=== PATIENT | female | born 1995 | race Caucasian/White ===

== ENCOUNTER 2019-07-24 04:44 | Day surgery (SDC) | payer BC, OTHER ==
[2019-07-24] MEDS ORDERED: HYDROmorphone 1 MG/ML Syringe IV ONE (05:09)
[2019-07-24] MEDS ORDERED: Ondansetron 4 MG/2 ML SDV IVPUSH ONE (05:09)
[2019-07-24] MEDS ORDERED: Sodium Chloride 0.9% 1,000 ML IV ONE (05:09)
--- NOTE | 2019-07-24 05:21 | EDM.PDOC ---
ED HPI GENERAL MEDICAL PROBLEM - General Chief Complaint: Abdominal Pain Stated Complaint: RT SIDE PAIN Time Seen by Provider: 07/24/19 05:10 Source of Information: Reports: Patient History Limitations: Reports: No Limitations - History of Present Illness INITIAL COMMENTS - FREE TEXT/NARRATIVE: HISTORY AND PHYSICAL: History of present illness: This is a 23-year-old female with no significant past medical history presents ER today complaining of pain to her right lower quadrant times approximately 12 hours. Patient denies any recent fevers, shakes, chills. Patient reports she has been nauseous but no vomiting. Patient reports she is had 3 loose watery bowel movements over the last 12 hours. Patient has any melena or bright red blood per rectum. Patient denies any dysuria frequency urgency hematuria. Patient denies any recent fevers, shakes, chills, URI symptoms, cough, rhinorrhea, sore throat, ear pain. Patient reports decreased appetite decreased p.o. intake. Patient reports pain increases with ambulation. Patient has any vaginal discharge. Patient denies any melena or bright red blood per rectum. Review of systems: As per history of present illness and below otherwise all systems reviewed and negative. Past medical history: As per history of present illness and as reviewed below otherwise noncontributory. Surgical history: As per history of present illness and as reviewed below otherwise noncontributory. Social history: No reported history of drug or alcohol abuse. Family history: As per history of present illness and as reviewed below otherwise noncontributory. Physical exam: Constitutional: Patient is oriented to person, place, and time. Appears well- developed and well-nourished. No distress. HEENT: Moist mucous membranes Head: Normocephalic and atraumatic Eyes: Right eye exhibits no discharge. Left eye exhibits no discharge. No scleral icterus Neck: Normal range of motion. No tracheal deviation present. Cardiovascular: Normal rate and regular rhythm. Pulmonary: Effort normal, no respiratory distress. Abdominal: Soft nondistended no rebound or guarding. Patient has tenderness to palpation to her right lower quadrant. Patient did not have a Saavedra sign. Patient does have tenderness over McBurney's point. Positive for rebound. Positive for guarding. Musculoskeletal: Normal range of motion Neurologic: Alert and oriented to person, place and time. Skin: [place], warm and dry. Psychiatric: Normal mood and affect. Behavior is normal. Judgment and thought content normal. Nursing note and vital signs have been reviewed Diagnostics: CT scan of the abdomen pelvis reveals early acute appendicitis without any intra -abdominal abscess or pneumoperitoneum. Intrauterine contraceptive device was in place. Patient's labs were significant for normal urinalysis. Patient CBC was significant for an elevated WBC count. Therapeutics: Patient was given Dilaudid 0.5 mg IV along with Zofran 4 mg IV desisted with her pain and discomfort. Patient was given normal saline solution wide open x1 L. Impression: This is a 23-year-old female who presents to the ER today with signs and symptoms consistent with acute appendicitis. Patient presented with right lower quadrant tenderness, nausea/anorexia, leukocytosis, and a CT scan consistent with early acute appendicitis. Plan: 6:31 AM: Patient was early acute appendicitis by CT scan as a culprit of her abdominal discomfort. Patient will need surgical consultation. Case discussed with Dr. Gonzales who is on his way into the ER to evaluate patient. Definitive disposition and diagnosis as appropriate pending reevaluation and review of above. 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 Musculoskeletal History: Reports: None Neurological History: Reports: None Psychiatric History: Reports: None Endocrine/Metabolic History: Reports: None Hematologic History: Reports: None Immunologic History: Reports: None Oncologic (Cancer) History: Reports: None Dermatologic History: Reports: None - Infectious Disease History Infectious Disease History: Reports: None - Past Surgical History Head Surgeries/Procedures: Reports: None HEENT Surgical History: Reports: None Cardiovascular Surgical History: Reports: None Respiratory Surgical History: Reports: None GI Surgical History: Reports: None Female Surgical History: Reports: None Endocrine Surgical History: Reports: None Neurological Surgical History: Reports: None Musculoskeletal Surgical History: Reports: None Dermatological Surgical History: Reports: None Social & Family History - Family History Family Medical History: Noncontributory - Tobacco Use Smoking Status *Q: Never Smoker Second Hand Smoke Exposure: No - Caffeine Use Caffeine Use: Reports: Coffee - Recreational Drug Use Recreational Drug Use: No ED ROS GENERAL - Review of Systems Review Of Systems: Comprehensive ROS is negative, except as noted in HPI. ED EXAM, GENERAL - Physical Exam Exam: See Below Course - Vital Signs Last Recorded V/S: Last Vital Signs Temp 96.4 F L 07/24/19 05:00 Pulse 70 07/24/19 06:05 Resp 15 07/24/19 06:05 BP 144/89 H 07/24/19 06:05 Pulse Ox 97 07/24/19 06:05 - Orders/Labs/Meds Orders: Active Orders 24 hr Category Date Time Status CORONAVIRUS COVID-19 PCR PHL Stat Lab 07/24/19 06:28 Ordered Labs: Laboratory Tests 07/24/19 07/24/19 07/24/19 Range/Units 05:00 05:00 05:10 WBC 16.20 H (4.0-11.0) K/uL RBC 5.16 (4.30-5.90) M/uL Hgb 15.2 (12.0-16.0) g/dL Hct 44.2 (36.0-46.0) % MCV 85.7 (80.0-98.0) fL MCH 29.5 (27.0-32.0) pg MCHC 34.4 (31.0-37.0) g/dL RDW Std Deviation 39.1 (28.0-62.0) fl RDW Coeff of Yadira 13 (11.0-15.0) % Plt Count 304 (150-400) K/uL MPV 8.60 (7.40-12.00) fL Neut % (Auto) 73.9 (48.0-80.0) % Lymph % (Auto) 18.4 (16.0-40.0) % [place] % (Auto) 6.0 (0.0-15.0) % Eos % (Auto) 1.5 (0.0-7.0) % Baso % (Auto) 0.2 (0.0-1.5) % Neut # (Auto) 12.0 H (1.4-5.7) K/uL Lymph # (Auto) 3.0 H (0.6-2.4) K/uL [place] # (Auto) 1.0 H (0.0-0.8) K/uL Eos # (Auto) 0.2 (0.0-0.7) K/uL Baso # (Auto) 0.0 (0.0-0.1) K/uL Nucleated RBC % 0.0 /100WBC Nucleated RBCs # 0 K/uL Sodium 141 (136-145) mmol/L Potassium 3.6 (3.5-5.1) mmol/L Chloride 104 (98-107) mmol/L Carbon Dioxide 24.4 (21.0-32.0) mmol/L BUN 11 (7.0-18.0) mg/dL Creatinine 0.9 (0.6-1.0) mg/dL Est Cr Clr Drug Dosing 86.73 mL/min Estimated GFR (MDRD) > 60.0 ml/min Glucose 104 (74-106) mg/dL Calcium 8.6 (8.5-10.1) mg/dL Total Bilirubin 0.3 (0.2-1.0) mg/dL AST 25 (15-37) IU/L ALT 41 (14-63) IU/L Alkaline Phosphatase 105 (46-116) U/L Total Protein 7.6 (6.4-8.2) g/dL Albumin 4.1 (3.4-5.0) g/dL Globulin 3.5 (2.6-4.0) g/dL Albumin/Globulin Ratio 1.2 (0.9-1.6) Lipase 151 (73-393) U/L Urine Color YELLOW Urine Appearance SLT CLOUDY Urine pH 6.0 (5.0-8.0) Ur Specific [place] 1.025 (1.001-1.035) Urine Protein NEGATIVE (NEGATIVE) mg/dL Urine Glucose (UA) NEGATIVE (NEGATIVE) mg/dL Urine Ketones NEGATIVE (NEGATIVE) mg/dL Urine Occult Blood SMALL H (NEGATIVE) Urine Nitrite NEGATIVE (NEGATIVE) Urine Bilirubin NEGATIVE (NEGATIVE) Urine Urobilinogen 0.2 (<2.0) EU/dL Ur Leukocyte Esterase NEGATIVE (NEGATIVE) Urine RBC 0-2 (0-2/HPF) Urine WBC 0-1 (0-5/HPF) Ur Epithelial Cells RARE (NONE-FEW) Urine Bacteria RARE (NEGATIVE) Urine HCG, Qual (NEGATIVE) 07/24/19 Range/Units 05:10 WBC (4.0-11.0) K/uL RBC (4.30-5.90) M/uL Hgb (12.0-16.0) g/dL Hct (36.0-46.0) % MCV (80.0-98.0) fL MCH (27.0-32.0) pg MCHC (31.0-37.0) g/dL RDW Std Deviation (28.0-62.0) fl RDW Coeff of [place]ad[place] (11.0-15.0) % Plt Count (150-400) K/uL MPV (7.40-12.00) fL Neut % (Auto) (48.0-80.0) % Lymph % (Auto) (16.0-40.0) % [place] % (Auto) (0.0-15.0) % Eos % (Auto) (0.0-7.0) % Baso % (Auto) (0.0-1.5) % Neut # (Auto) (1.4-5.7) K/uL Lymph # (Auto) (0.6-2.4) K/uL [place] # (Auto) (0.0-0.8) K/uL Eos # (Auto) (0.0-0.7) K/uL Baso # (Auto) (0.0-0.1) K/uL Nucleated RBC % /100WBC Nucleated RBCs # K/uL Sodium (136-145) mmol/L Potassium (3.5-5.1) mmol/L Chloride (98-107) mmol/L Carbon Dioxide (21.0-32.0) mmol/L BUN (7.0-18.0) mg/dL Creatinine (0.6-1.0) mg/dL Est Cr Clr Drug Dosing mL/min Estimated GFR (MDRD) ml/min Glucose (74-106) mg/dL Calcium (8.5-10.1) mg/dL Total Bilirubin (0.2-1.0) mg/dL AST (15-37) IU/L ALT (14-63) IU/L Alkaline Phosphatase (46-116) U/L Total Protein (6.4-8.2) g/dL Albumin (3.4-5.0) g/dL Globulin (2.6-4.0) g/dL Albumin/Globulin Ratio (0.9-1.6) Lipase (73-393) U/L Urine Color Urine Appearance Urine pH (5.0-8.0) Ur Specific [place] (1.001-1.035) Urine Protein (NEGATIVE) mg/dL Urine Glucose (UA) (NEGATIVE) mg/dL Urine Ketones (NEGATIVE) mg/dL Urine Occult Blood (NEGATIVE) Urine Nitrite (NEGATIVE) Urine Bilirubin (NEGATIVE) Urine Urobilinogen (<2.0) EU/dL Ur Leukocyte Esterase (NEGATIVE) Urine RBC (0-2/HPF) Urine WBC (0-5/HPF) Ur Epithelial Cells (NONE-FEW) Urine Bacteria (NEGATIVE) Urine HCG, Qual NEGATIVE (NEGATIVE) Meds: Medications Discontinued Medications Generic Name Dose Route Start Last Admin Trade Name Freq PRN Reason Stop Dose Admin Hydromorphone HCl 0.5 mg 07/24/19 05:09 07/24/19 05:21 Dilaudid IV 07/24/19 05:10 0.5 mg ONETIME ONE Administration Sodium Chloride 1,000 mls @ 1,000 mls/hr 07/24/19 05:09 07/24/19 05:21 Normal Saline IV 07/24/19 06:08 1,000 mls/hr BOLUS ONE Administration Ondansetron HCl 4 mg 07/24/19 05:09 07/24/19 05:21 Zofran IVPUSH 07/24/19 05:10 4 mg ONETIME ONE Administration Departure - Departure Time of Disposition: 06:32 Disposition: Admitted As Inpatient 65 Condition: Good Clinical Impression: Appendicitis Qualifiers: Appendicitis type: acute appendicitis Acute appendicitis type: with localized peritonitis Appendicitis perforation presence: without perforation Appendicitis abscess presence: without abscess - Discharge Information *PRESCRIPTION DRUG MONITORING PROGRAM REVIEWED*: Not Applicable *COPY OF PRESCRIPTION DRUG MONITORING REPORT IN PATIENT MIYA: Not Applicable Referrals: PCP,None [Primary Care Provider] - Forms: ED Department Discharge Sepsis Event Note (ED) - Evaluation Sepsis Screening Result: No Definite Risk - Focused Exam Vital Signs: Vital Signs Temp Pulse Resp BP Pulse Ox 07/24/19 06:05 70 15 144/89 H 97 07/24/19 05:00 96.4 F L 102 H 15 168/104 H 98 - My Orders Last 24 Hours: My Active Orders 07/24/19 06:28 CORONAVIRUS COVID-19 PCR PHL Stat - Assessment/Plan Last 24 Hours: My Active Orders 07/24/19 06:28 CORONAVIRUS COVID-19 PCR PHL Stat
[2019-07-24 05:28] LABS: BLOOD UREA NITROGEN,BUN 11 mg/dL (7.0-18.0); CARBON DIOXIDE,CO2 24.4 mmol/L (21.0-32.0); CHLORIDE,CL 104 mmol/L (98-107); GLUCOSE RANDOM 104 mg/dL (74-106); LIPASE 151 U/L (73-393); POTASSIUM,K 3.6 mmol/L (3.5-5.1); SODIUM,NA 141 mmol/L (136-145)
--- NOTE | 2019-07-24 06:28 | CT ---
INDICATION: Right-sided abdominal pain. COMPARISON: None. TECHNIQUE: CT abdomen and pelvis without intravenous or oral contrast; coronal and sagittal reformats. FINDINGS: Enlarged appendix measuring 11 mm in diameter with edema involving the appendiceal wall and periappendiceal inflammatory changes. Also appreciated is a small appendicolith. No evidence of intra-abdominal abscess. No pneumoperitoneum or intestinal obstruction . No abnormal intra pulmonary nodular densities through the lung bases. No evidence of pleural effusion . Normal size cardiac silhouette without any evidence of pericardial effusion. No focal hepatic or splenic pathology. No pancreatic pathology. Gallbladder is unremarkable. No adrenal pathology. No kidney stones or obstructive uropathy. No retroperitoneal lymphadenopathy. Intrauterine contraceptive device in place. IMPRESSION: 1. Early acute appendicitis without any intra-abdominal abscess or pneumoperitoneum. 2. Intrauterine contraceptive device in place. Please note that all CT scans at this facility use dose modulation, iterative reconstruction, and/or weight-based dosing when appropriate to reduce radiation dose to as low as reasonably achievable. Dictated by Kristal Espinosa MD @ Jul 24 2019 6:23AM Signed by Dr. Kristal Espinosa @ Jul 24 2019 6:26AM
[2019-07-24] MEDS ORDERED: cefOXitin 2 GM in Premix Bag 1 BAG IV ONE (07:39)
[2019-07-24] MEDS ORDERED: Lactated Ringers 1,000 ML IV SCH ×2 (07:45→11:30)
--- NOTE | 2019-07-24 07:45 | PCM.HP.2 ---
H&P History of Present Illness - General Date of Service: 07/24/19 Admit Problem/Dx: Admission Diagnosis/Problem Admission Diagnosis/Problem Acute appendicitis Source of Information: Patient History Limitations: Reports: No Limitations - History of Present Illness Initial Comments - Free Text/Narative: Patient is a 23-year-old female who presented the emergency room this morning complaining of right lower quadrant pain. She relates the pain did start last night. Mild nausea with anorexia. No history of vomiting. No change in bowel habits. No one at home is ill. She also notes pain with ambulation and states it's hard to stand up straight when she walks. Symptom Onset Date: 07/23/19 Duration of Symptoms: Reports: Hour(s):, Getting Worse Location: Reports: Abdomen Quality: Reports: Pressure Severity: Moderate Improves with: Reports: Rest Worsens with: Reports: Movement Associated Symptoms: Reports: Loss of Appetite. Denies: Nausea/Vomiting Right Lower Abdomen Pain Score (Numeric/FACES): 5 - Related Data Allergies/Adverse Reactions: Allergies Allergy/AdvReac Type Severity Reaction Status Date / Time amoxicillin Allergy Rash Verified 07/24/19 04:59 fentanyl Allergy Rash Verified 07/24/19 04:59 Home Medications: Home Meds Iud 1 VAG ASDIRECTED 07/24/19 [History] Past Medical History - Past Health History Medical/Surgical History: Denies Medical/Surgical History HEENT History: Reports: None Cardiovascular History: Reports: None Respiratory History: Reports: None Gastrointestinal History: Reports: None Genitourinary History: Reports: None 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, Other (See Below) (IUD) Musculoskeletal History: Reports: None Neurological History: Reports: None Psychiatric History: Reports: None Endocrine/Metabolic History: Reports: None Hematologic History: Reports: None Immunologic History: Reports: None Oncologic (Cancer) History: Reports: None Dermatologic History: Reports: None - Infectious Disease History Infectious Disease History: Reports: None - Past Surgical History Head Surgeries/Procedures: Reports: None HEENT Surgical History: Reports: None Cardiovascular Surgical History: Reports: None Respiratory Surgical History: Reports: None GI Surgical History: Reports: None Female Surgical History: Reports: None Endocrine Surgical History: Reports: None Neurological Surgical History: Reports: None Musculoskeletal Surgical History: Reports: None Dermatological Surgical History: Reports: None Social & Family History - Family History Family Medical History: Noncontributory - Tobacco Use Smoking Status *Q: Never Smoker Second Hand Smoke Exposure: No - Caffeine Use Caffeine Use: Reports: Coffee - Recreational Drug Use Recreational Drug Use: No H&P Review of Systems - Review of Systems: Review Of Systems: See Below General: Reports: Decreased Appetite. Denies: Fever, Chills HEENT: Reports: No Symptoms Pulmonary: Denies: Shortness of Breath, Wheezing Cardiovascular: Denies: Chest Pain, Palpitations Gastrointestinal: Reports: Abdominal Pain, Anorexia, Flatus. Denies: Black Stool, Bloody Stool, Constipation, Diarrhea, Hematemesis, Hematochezia, Nausea, Vomiting Genitourinary: Denies: Dysuria, Frequency, Burning, Pain Musculoskeletal: Reports: No Symptoms Skin: Denies: Cyanosis, Jaundice, Mottled, Pallor, Diaphoresis Psychiatric: Reports: No Symptoms Neurological: Reports: No Symptoms Hematologic/Lymphatic: Reports: No Symptoms Immunologic: Reports: No Symptoms Exam - Exam Exam: See Below - Vital Signs Vital Signs: Last Vital Signs Temp 96.4 F L 07/24/19 05:00 Pulse 69 07/24/19 06:51 Resp 16 07/24/19 06:51 BP 143/95 H 07/24/19 06:51 Pulse Ox 97 07/24/19 06:51 Weight: 210 lb - Exam Quality Assessment: No: Supplemental Oxygen, Central Line/PICC, Urinary Catheter General: Alert, Oriented, Cooperative, Mild Distress HEENT: Conjunctiva Clear, Nares Patent, PERRLA. No: Scleral Icterus Neck: Supple, Trachea Midline Lungs: Clear to Auscultation, Normal Respiratory Effort Cardiovascular: Regular Rate, Regular Rhythm, Normal S1, Normal S2. No: Tachycardia, Systolic Murmur, Diastolic Murmur GI/Abdominal Exam: Normal Bowel Sounds, Soft, No Distention, Rebound, Tender. No: Guarding, Rigid (Female) Exam: Deferred Rectal (Female) Exam: Deferred Back Exam: Normal Inspection, Full Range of Motion Extremities: Normal Inspection, Normal Range of Motion, No Pedal Edema, Normal Capillary Refill Peripheral Pulses: 4+: Posterior Tibial (L), Posterior Tibial (R), Dorsalis Pedis (L), Dorsalis Pedis (R) Skin: Warm, Dry, Intact Neuro Extensive - Mental Status: Alert, Oriented x3, Normal Mood/Affect, Normal Cognition Psychiatric: Alert, Normal Affect, Normal Mood - Patient Data Lab Results Last 24 hrs: Laboratory Results - last 24 hr 07/24/19 07/24/19 07/24/19 Range/Units 05:00 05:00 05:10 WBC 16.20 H (4.0-11.0) K/uL RBC 5.16 (4.30-5.90) M/uL Hgb 15.2 (12.0-16.0) g/dL Hct 44.2 (36.0-46.0) % MCV 85.7 (80.0-98.0) fL MCH 29.5 (27.0-32.0) pg MCHC 34.4 (31.0-37.0) g/dL RDW Std Deviation 39.1 (28.0-62.0) fl RDW Coeff of Yadira 13 (11.0-15.0) % Plt Count 304 (150-400) K/uL MPV 8.60 (7.40-12.00) fL Neut % (Auto) 73.9 (48.0-80.0) % Lymph % (Auto) 18.4 (16.0-40.0) % [place] % (Auto) 6.0 (0.0-15.0) % Eos % (Auto) 1.5 (0.0-7.0) % Baso % (Auto) 0.2 (0.0-1.5) % Neut # (Auto) 12.0 H (1.4-5.7) K/uL Lymph # (Auto) 3.0 H (0.6-2.4) K/uL [place] # (Auto) 1.0 H (0.0-0.8) K/uL Eos # (Auto) 0.2 (0.0-0.7) K/uL Baso # (Auto) 0.0 (0.0-0.1) K/uL Nucleated RBC % 0.0 /100WBC Nucleated RBCs # 0 K/uL Sodium 141 (136-145) mmol/L Potassium 3.6 (3.5-5.1) mmol/L Chloride 104 (98-107) mmol/L Carbon Dioxide 24.4 (21.0-32.0) mmol/L BUN 11 (7.0-18.0) mg/dL Creatinine 0.9 (0.6-1.0) mg/dL Est Cr Clr Drug Dosing 86.73 mL/min Estimated GFR (MDRD) > 60.0 ml/min Glucose 104 (74-106) mg/dL Calcium 8.6 (8.5-10.1) mg/dL Total Bilirubin 0.3 (0.2-1.0) mg/dL AST 25 (15-37) IU/L ALT 41 (14-63) IU/L Alkaline Phosphatase 105 (46-116) U/L Total Protein 7.6 (6.4-8.2) g/dL Albumin 4.1 (3.4-5.0) g/dL Globulin 3.5 (2.6-4.0) g/dL Albumin/Globulin Ratio 1.2 (0.9-1.6) Lipase 151 (73-393) U/L Urine Color YELLOW Urine Appearance SLT CLOUDY Urine pH 6.0 (5.0-8.0) Ur Specific [place] 1.025 (1.001-1.035) Urine Protein NEGATIVE (NEGATIVE) mg/dL Urine Glucose (UA) NEGATIVE (NEGATIVE) mg/dL Urine Ketones NEGATIVE (NEGATIVE) mg/dL Urine Occult Blood SMALL H (NEGATIVE) Urine Nitrite NEGATIVE (NEGATIVE) Urine Bilirubin NEGATIVE (NEGATIVE) Urine Urobilinogen 0.2 (<2.0) EU/dL Ur Leukocyte Esterase NEGATIVE (NEGATIVE) Urine RBC 0-2 (0-2/HPF) Urine WBC 0-1 (0-5/HPF) Ur Epithelial Cells RARE (NONE-FEW) Urine Bacteria RARE (NEGATIVE) Urine HCG, Qual (NEGATIVE) SARS-CoV-2 RNA (RT-PCR) (NEGATIVE) 07/24/19 07/24/19 Range/Units 05:10 06:29 WBC (4.0-11.0) K/uL RBC (4.30-5.90) M/uL Hgb (12.0-16.0) g/dL Hct (36.0-46.0) % MCV (80.0-98.0) fL MCH (27.0-32.0) pg MCHC (31.0-37.0) g/dL RDW Std Deviation (28.0-62.0) fl RDW Coeff of [place]ad[place] (11.0-15.0) % Plt Count (150-400) K/uL MPV (7.40-12.00) fL Neut % (Auto) (48.0-80.0) % Lymph % (Auto) (16.0-40.0) % [place] % (Auto) (0.0-15.0) % Eos % (Auto) (0.0-7.0) % Baso % (Auto) (0.0-1.5) % Neut # (Auto) (1.4-5.7) K/uL Lymph # (Auto) (0.6-2.4) K/uL [place] # (Auto) (0.0-0.8) K/uL Eos # (Auto) (0.0-0.7) K/uL Baso # (Auto) (0.0-0.1) K/uL Nucleated RBC % /100WBC Nucleated RBCs # K/uL Sodium (136-145) mmol/L Potassium (3.5-5.1) mmol/L Chloride (98-107) mmol/L Carbon Dioxide (21.0-32.0) mmol/L BUN (7.0-18.0) mg/dL Creatinine (0.6-1.0) mg/dL Est Cr Clr Drug Dosing mL/min Estimated GFR (MDRD) ml/min Glucose (74-106) mg/dL Calcium (8.5-10.1) mg/dL Total Bilirubin (0.2-1.0) mg/dL AST (15-37) IU/L ALT (14-63) IU/L Alkaline Phosphatase (46-116) U/L Total Protein (6.4-8.2) g/dL Albumin (3.4-5.0) g/dL Globulin (2.6-4.0) g/dL Albumin/Globulin Ratio (0.9-1.6) Lipase (73-393) U/L Urine Color Urine Appearance Urine pH (5.0-8.0) Ur Specific [place] (1.001-1.035) Urine Protein (NEGATIVE) mg/dL Urine Glucose (UA) (NEGATIVE) mg/dL Urine Ketones (NEGATIVE) mg/dL Urine Occult Blood (NEGATIVE) Urine Nitrite (NEGATIVE) Urine Bilirubin (NEGATIVE) Urine Urobilinogen (<2.0) EU/dL Ur Leukocyte Esterase (NEGATIVE) Urine RBC (0-2/HPF) Urine WBC (0-5/HPF) Ur Epithelial Cells (NONE-FEW) Urine Bacteria (NEGATIVE) Urine HCG, Qual NEGATIVE (NEGATIVE) SARS-CoV-2 RNA (RT-PCR) NEGATIVE (NEGATIVE) Result Diagrams: 07/24/19 05:00 07/24/19 05:00 Sepsis Event Note - Evaluation Sepsis Screening Result: No Definite Risk - Focused Exam Vital Signs: Vital Signs Temp Pulse Resp BP Pulse Ox 07/24/19 06:51 69 16 143/95 H 97 07/24/19 06:05 70 15 144/89 H 97 07/24/19 05:00 96.4 F L 102 H 15 168/104 H 98 Date Exam was Performed: 07/24/19 Time Exam was Performed: 07:40 - Problem List (1) Appendicitis SNOMED Code(s): 90240307 ICD Code: K37 - UNSPECIFIED APPENDICITIS Status: Acute Current Visit: Yes Qualifiers: Appendicitis type: acute appendicitis Acute appendicitis type: with localized peritonitis Appendicitis gangrene presence: unspecified whether gangrene present Appendicitis perforation presence: without perforation Appendicitis abscess presence: without abscess Qualified Code(s): K35.30 - Acute appendicitis with localized peritonitis, without perforation or gangrene Problem List Initiated/Reviewed/Updated: Yes Orders Last 24hrs: Active Orders 24 hr Category Date Time Status Admission Status [Patient Status] [ADT] Routine ADT 07/24/19 06:50 Active Antiembolic Devices [RC] PER UNIT ROUTINE Care 07/24/19 07:39 Ordered Insert Urinary Catheter [OM.PC] Timed Care 07/24/19 07:39 Ordered Oxygen Therapy [RC] ASDIRECTED Care 07/24/19 07:39 Ordered RT Incentive Spirometry [RC] Q1HWA Care 07/24/19 07:39 Ordered Skin Preparation [RC] .PREOP Care 07/24/19 07:39 Ordered Urinary Catheter Assessment [RC] ASDIRECTED Care 07/24/19 07:39 Ordered Urinary Catheter Assessment [RC] ASDIRECTED Care 07/24/19 07:39 Ordered Urinary Catheter Assessment [RC] ASDIRECTED Care 07/24/19 07:39 Ordered Vital Signs [RC] PER UNIT ROUTINE Care 07/24/19 07:39 Ordered Nothing Per Oral Diet [DIET] Diet 07/24/19 Dinner Ordered Lactated Ringers @ 125 MLS/HR(1000ml) Med 07/24/19 07:45 Ordered Lactated Ringers [Ringers, Lactated] 1,000 ml IV ASDIRECTED cefOXitin [Mefoxin in Dextrose,Iso-Osm 2 GM/50 ML] 2 gm Med 07/24/19 07:39 Ordered Premix Bag 1 bag IV ONETIME Antiembolic Hose [OM.PC] Routine Oth 07/24/19 07:39 Ordered Resuscitation Status Routine Resus Stat 07/24/19 07:39 Ordered Laparoscopic appendectomy, possible open appendectomy. Both operative procedures, along with the risks, including, but not limited to, bleeding, infection, pneumonia, deep venous thrombosis, pulmonary emboli, myocardial infarction, and adjacent organ injury have been reviewed with the patient who voices understanding, offers no questions and agrees to proceed. - Mortality Measure Prognosis:: Good
--- NOTE | 2019-07-24 07:52 | PCM.PREANE ---
Preanesthetic Assessment - Anesthesia/Transfusion/Family Hx Anesthesia History: Prior Anesthesia Without Reaction Family History of Anesthesia Reaction: No Transfusion History: Unknown Intubation History: Unknown - Review of Systems General: No Symptoms Pulmonary: No Symptoms Cardiovascular: No Symptoms Gastrointestinal: Abdominal Pain Neurological: No Symptoms Other: Reports: None - Physical Assessment Vital Signs: Last Vital Signs Temp 35.8 C L 07/24/19 05:00 Pulse 69 07/24/19 06:51 Resp 16 07/24/19 06:51 BP 143/95 H 07/24/19 06:51 Pulse Ox 97 07/24/19 06:51 Height: 5 ft 5 in Weight: 95.254 kg ASA Class: 2E Mental Status: Alert & Oriented x3 Airway Class: Mallampati = 1 Dentition: Reports: Normal Dentition Thyro-Mental Finger Breadths: 3 Mouth Opening Finger Breadths: 3 ROM/Head Extension: Full Lungs: Clear to Auscultation, Normal Respiratory Effort Cardiovascular: Regular Rate, Regular Rhythm - Lab Values: Laboratory Last Values WBC 16.20 K/uL (4.0-11.0) H 07/24/19 05:00 RBC 5.16 M/uL (4.30-5.90) 07/24/19 05:00 Hgb 15.2 g/dL (12.0-16.0) 07/24/19 05:00 Hct 44.2 % (36.0-46.0) 07/24/19 05:00 MCV 85.7 fL (80.0-98.0) 07/24/19 05:00 MCH 29.5 pg (27.0-32.0) 07/24/19 05:00 MCHC 34.4 g/dL (31.0-37.0) 07/24/19 05:00 RDW Std Deviation 39.1 fl (28.0-62.0) 07/24/19 05:00 RDW Coeff of Yadira 13 % (11.0-15.0) 07/24/19 05:00 Plt Count 304 K/uL (150-400) 07/24/19 05:00 MPV 8.60 fL (7.40-12.00) 07/24/19 05:00 Neut % (Auto) 73.9 % (48.0-80.0) 07/24/19 05:00 Lymph % (Auto) 18.4 % (16.0-40.0) 07/24/19 05:00 [place] % (Auto) 6.0 % (0.0-15.0) 07/24/19 05:00 Eos % (Auto) 1.5 % (0.0-7.0) 07/24/19 05:00 Baso % (Auto) 0.2 % (0.0-1.5) 07/24/19 05:00 Neut # (Auto) 12.0 K/uL (1.4-5.7) H 07/24/19 05:00 Lymph # (Auto) 3.0 K/uL (0.6-2.4) H 07/24/19 05:00 [place] # (Auto) 1.0 K/uL (0.0-0.8) H 07/24/19 05:00 Eos # (Auto) 0.2 K/uL (0.0-0.7) 07/24/19 05:00 Baso # (Auto) 0.0 K/uL (0.0-0.1) 07/24/19 05:00 Nucleated RBC % 0.0 /100WBC 07/24/19 05:00 Nucleated RBCs # 0 K/uL 07/24/19 05:00 Sodium 141 mmol/L (136-145) 07/24/19 05:00 Potassium 3.6 mmol/L (3.5-5.1) 07/24/19 05:00 Chloride 104 mmol/L (98-107) 07/24/19 05:00 Carbon Dioxide 24.4 mmol/L (21.0-32.0) 07/24/19 05:00 BUN 11 mg/dL (7.0-18.0) 07/24/19 05:00 Creatinine 0.9 mg/dL (0.6-1.0) 07/24/19 05:00 Est Cr Clr Drug Dosing 86.73 mL/min 07/24/19 05:00 Estimated GFR (MDRD) > 60.0 ml/min 07/24/19 05:00 Glucose 104 mg/dL (74-106) 07/24/19 05:00 Calcium 8.6 mg/dL (8.5-10.1) 07/24/19 05:00 Total Bilirubin 0.3 mg/dL (0.2-1.0) 07/24/19 05:00 AST 25 IU/L (15-37) 07/24/19 05:00 ALT 41 IU/L (14-63) 07/24/19 05:00 Alkaline Phosphatase 105 U/L (46-116) 07/24/19 05:00 Total Protein 7.6 g/dL (6.4-8.2) 07/24/19 05:00 Albumin 4.1 g/dL (3.4-5.0) 07/24/19 05:00 Globulin 3.5 g/dL (2.6-4.0) 07/24/19 05:00 Albumin/Globulin Ratio 1.2 (0.9-1.6) 07/24/19 05:00 Lipase 151 U/L (73-393) 07/24/19 05:00 Urine Color YELLOW 07/24/19 05:10 Urine Appearance SLT CLOUDY 07/24/19 05:10 Urine pH 6.0 (5.0-8.0) 07/24/19 05:10 Ur Specific [place] 1.025 (1.001-1.035) 07/24/19 05:10 Urine Protein NEGATIVE mg/dL (NEGATIVE) 07/24/19 05:10 Urine Glucose (UA) NEGATIVE mg/dL (NEGATIVE) 07/24/19 05:10 Urine Ketones NEGATIVE mg/dL (NEGATIVE) 07/24/19 05:10 Urine Occult Blood SMALL (NEGATIVE) H 07/24/19 05:10 Urine Nitrite NEGATIVE (NEGATIVE) 07/24/19 05:10 Urine Bilirubin NEGATIVE (NEGATIVE) 07/24/19 05:10 Urine Urobilinogen 0.2 EU/dL (<2.0) 07/24/19 05:10 Ur Leukocyte Esterase NEGATIVE (NEGATIVE) 07/24/19 05:10 Urine RBC 0-2 (0-2/HPF) 07/24/19 05:10 Urine WBC 0-1 (0-5/HPF) 07/24/19 05:10 Ur Epithelial Cells RARE (NONE-FEW) 07/24/19 05:10 Urine Bacteria RARE (NEGATIVE) 07/24/19 05:10 Urine HCG, Qual NEGATIVE (NEGATIVE) 07/24/19 05:10 SARS-CoV-2 RNA (RT-PCR) NEGATIVE (NEGATIVE) 07/24/19 06:29 - Allergies Allergies/Adverse Reactions: Allergies Allergy/AdvReac Type Severity Reaction Status Date / Time amoxicillin Allergy Rash Verified 07/24/19 04:59 fentanyl Allergy Rash Verified 07/24/19 04:59 - Blood Blood Available: No - Anesthesia Plan Pre-Op Medication Ordered: None - Acknowledgements Anesthesia Type Planned: General Anesthesia Pt an Appropriate Candidate for the Planned Anesthesia: Yes Alternatives and Risks of Anesthesia Discussed w Pt/Guardian: Yes Pt/Guardian Understands and Agrees with Anesthesia Plan: Yes PreAnesthesia Questionnaire - Past Health History Medical/Surgical History: Denies Medical/Surgical History HEENT History: Reports: None Cardiovascular History: Reports: Hypertension (no medications) Respiratory History: Reports: None Gastrointestinal History: Reports: Other (See Below) (acute appendicitis) Genitourinary History: Reports: None [employer]UC[employer] TE[employer]ER History: Reports: None, Other (See Below) (IUD) Musculoskeletal History: Reports: None Neurological History: Reports: None Psychiatric History: Reports: None Endocrine/Metabolic History: Reports: Obesity/BMI 30+ (BMI 34.9) Hematologic History: Reports: None Immunologic History: Reports: None Oncologic (Cancer) History: Reports: None Dermatologic History: Reports: None - Infectious Disease History Infectious Disease History: Reports: None - Past Surgical History Head Surgeries/Procedures: Reports: None HEENT Surgical History: Reports: Oral Surgery Cardiovascular Surgical History: Reports: None Respiratory Surgical History: Reports: None GI Surgical History: Reports: None Female Surgical History: Reports: None Endocrine Surgical History: Reports: None Neurological Surgical History: Reports: None Musculoskeletal Surgical History: Reports: None Dermatological Surgical History: Reports: None - SUBSTANCE USE Smoking Status *Q: Never Smoker Second Hand Smoke Exposure: No Recreational Drug Use History: No - HOME MEDS Home Medications: Home Meds Iud 1 VAG ASDIRECTED 07/24/19 [History] - CURRENT (IN HOUSE) MEDS Current Meds: Current Medications Cefoxitin Sodium 2 gm/ Premix 50 mls @ 100 mls/hr IV ONETIME ONE Stop: 07/24/19 08:08 Lactated Ringer's (Ringers, Lactated) 1,000 mls @ 125 mls/hr IV ASDIRECTED CRISTO Discontinued Medications Hydromorphone HCl (Dilaudid) 0.5 mg IV ONETIME ONE Stop: 07/24/19 05:10 Last Admin: 07/24/19 05:21 Dose: 0.5 mg Sodium Chloride (Normal Saline) 1,000 mls @ 1,000 mls/hr IV BOLUS ONE Stop: 07/24/19 06:08 Last Admin: 07/24/19 05:21 Dose: 1,000 mls/hr Ondansetron HCl (Zofran) 4 mg IVPUSH ONETIME ONE Stop: 07/24/19 05:10 Last Admin: 07/24/19 05:21 Dose: 4 mg
[2019-07-24] MEDS ORDERED: Midazolam 1 MG/ML 2 ML SDV ONE (08:29)
[2019-07-24] MEDS ORDERED: Propofol 200 MG/20 ML SDV ONE (08:29)
[2019-07-24] MEDS ORDERED: fentaNYL 250 MCG/5 ML SDV ONE (08:29)
[2019-07-24] MEDS ORDERED: Ketorolac 30 MG/ML SDV ONE (08:31)
[2019-07-24] MEDS ORDERED: Lidocaine 2% 5 ML SDV ONE (08:31)
[2019-07-24] MEDS ORDERED: Rocuronium Bromide 50 MG/5 ML Syringe ONE (08:31)
[2019-07-24] MEDS ORDERED: Ondansetron 4 MG/2 ML SDV ONE (08:31)
[2019-07-24] MEDS ORDERED: Glycopyrrolate 0.2 MG/ML SDV ONE (08:31)
[2019-07-24] MEDS ORDERED: Sugammadex Sodium 200 MG/2 ML VIAL ONE (08:33)
[2019-07-24] MEDS ORDERED: ceFAZolin 1 GM Vial ONE (09:48)
[2019-07-24] MEDS ORDERED: Bupivacaine 0.5% 10 ML SDV ONE (09:48)
[2019-07-24] MEDS ORDERED: Acetaminophen 1,000 MG in Premix Bag 1 BAG IV PRN (10:23)
[2019-07-24] MEDS ORDERED: fentaNYL 100 MCG/2 ML SDV IVPUSH PRN (10:23)
[2019-07-24] MEDS ORDERED: cefOXitin 1 GM Vial ONE (10:56)
[2019-07-24] MEDS ORDERED: fentaNYL 100 MCG/2 ML SDV ONE (11:08)
--- NOTE | 2019-07-24 11:29 | PCM.OPNOTE ---
- General Post-Op/Procedure Note Date of Surgery/Procedure: 07/24/19 Operative Procedure(s): Laparoscopic appendectomy Pre Op Diagnosis: Acute abdomen Post-Op Diagnosis: Acute separative appendicitis without rupture Anesthesia Technique: General ET Tube (ASA IIE) Primary Surgeon: Edilson Gonzales Fluid Replacement, Intraop: 1,100 Output, Urine Amount: 100 EBL in mLs: 10 Condition: Stable Free Text/Narrative:: DICTATION 106411 CPT CODE 10187
[2019-07-24] MEDS ORDERED: cefOXitin 1 GM in Premix Bag 1 BAG IV SCH ×2 (11:30→16:00)
--- NOTE | 2019-07-24 12:10 | PCM.POSTAN ---
POST ANESTHESIA ASSESSMENT - MENTAL STATUS Mental Status: Alert, Oriented - VITAL SIGNS Vital Signs: Last Vital Signs Temp 36.3 C 07/24/19 11:18 Pulse 60 07/24/19 12:02 Resp 17 07/24/19 12:02 BP 115/70 07/24/19 12:02 Pulse Ox 96 07/24/19 12:02 - RESPIRATORY Respiratory Status: Respiratory Rate WNL, Airway Patent, O2 Saturation Stable - CARDIOVASCULAR CV Status: Pulse Rate WNL, Blood Pressure Stable - GASTROINTESTINAL GI Status: No Symptoms - PAIN Pain Score: 0 - POST OP HYDRATION Hydration Status: Adequate & Stable - OBSERVATIONS Free Text/Narrative:: No anesthesia problems.
[2019-07-24] MEDS ORDERED: Ondansetron 4 MG/2 ML SDV IVPUSH PRN (14:35)
[2019-07-24] MEDS ORDERED: Acetaminophen/HYDROcodone 325-5 MG Tab PO PRN (14:35)
--- NOTE | 2019-07-24 15:05 | OR ---
SURGEON: Edilson Gonzales M.D. DATE OF PROCEDURE: 07/24/2019 OPERATION PERFORMED: Laparoscopic appendectomy. PRIMARY SURGEON: Edilson Gonzales MD ANESTHESIA: General endotracheal. ASA CLASSIFICATION: IIE. PREOPERATIVE DIAGNOSIS: Acute abdomen. POSTOPERATIVE DIAGNOSIS: Acute appendicitis without rupture. ESTIMATED BLOOD LOSS: 10 mL. INTRAOPERATIVE FLUID REPLACEMENT: 1100 mL of crystalloid. INTRAOPERATIVE URINARY OUTPUT: 100 mL. DESCRIPTION OF PROCEDURE: The patient was taken to the operating room and placed on the operating table in the supine position. Time-out was called for appropriate identification of the patient and procedure. Sequential compression boots were placed. Following satisfactory attainment of general endotracheal anesthesia, a [place] catheter was placed in the patient's urinary bladder. The abdomen was prepped with DuraPrep solution. Sterile drapes were applied. The skin just above the umbilicus was infiltrated with 0.5% Marcaine solution. A skin incision was made and deepened through the subcutaneous tissue obtaining hemostasis with the use of electrocautery. Veress needle was introduced into the peritoneal cavity. Saline drop test was positive. Carbon dioxide pneumoperitoneum was established with the release set at 13 cm of water. Once a satisfactory pneumoperitoneum was established, 5 mm camera and port were placed through the supraumbilical incision. The patient was now positioned with her head down and rolled to the left. Under camera vision, 12 mm suprapubic and 5 mm left lower quadrant ports were placed. Each incision had preemptively been infiltrated with 0.5% Marcaine solution. Hemostasis was again obtained with the use of electrocautery. The appendix was grasped and the tip was acutely inflamed, but not ruptured nor gangrenous. The mesoappendix was taken down with the Harmonic scalpel. The base of the appendix was doubly ligated with 0 PDS Endoloops. The appendix was then transected using the Harmonic scalpel and promptly placed in an Endo Catch bag. The right lower quadrant was then inspected for hemostasis and no bleeding was noted. Minimal fluid was present. The right lower quadrant was irrigated with several 100 mL of 1% Ancef solution. All fluid was aspirated, and the right lower quadrant again inspected. Again, no bleeding was noted. With that accomplished, the Endo Catch was withdrawn into the 12 mm port which was subsequently removed removing the Endo Catch containing appendix with it. Under camera vision, 5 mm left lower quadrant and 5 mm supraumbilical ports were removed. Wounds were inspected for hemostasis and no bleeding was noted. The supraumbilical and suprapubic incisions were closed in 2 layers approximating the subcutaneous tissue with 3-0 Vicryl and the skin with subcuticular 4-0 Monocryl. The left lower quadrant incision was closed with subcuticular 4-0 Monocryl. All incisions were steri-stripped and dressed with sterile Tegaderm pads. Sponge, needle, and instrument counts were all correct. [place] catheter was removed prior to emergence from anesthesia. Following emergence from anesthesia and extubation, the patient was taken to recovery room in stable condition. CHAPARRO HANEY /[id number]
--- NOTE | 2019-07-24 16:27 | PCM48HPAN ---
Post Anesthesia Note - EVALUATION WITHIN 48HRS OF ANESTHETIC Vital Signs in Normal Range: Yes Patient Participated in Evaluation: Yes Respiratory Function Stable: Yes Airway Patent: Yes Cardiovascular Function Stable: Yes Hydration Status Stable: Yes Pain Control Satisfactory: Yes Nausea and Vomiting Control Satisfactory: Yes Mental Status Recovered: Yes Vital Signs: Last Vital Signs Temp 36.6 C 07/24/19 15:55 Pulse 67 07/24/19 15:55 Resp 18 07/24/19 15:55 BP 138/91 H 07/24/19 15:55 Pulse Ox 96 07/24/19 15:55
== END 2019-07-24 17:15 | disposition home or self-care (01) ==
LOC: MW.ED 04:44 → MW.SDS 06:32 → MW.MS 11:54 → MW.SDS 17:15
PROVIDERS: ATTEND Surgery
DX: K35.30 Acute appendicitis with localized peritonitis, without perforation or gangrene (principal); I10 Essential (primary) hypertension; E66.9 Obesity, unspecified; Z68.34 Body mass index [BMI] 34.0-34.9, adult; Z88.0 Allergy status to penicillin; Z88.6 Allergy status to analgesic agent
CPT/HCPCS: 36415; 44970; 74176; 80053; 81001; 81025; 83690; 85025; 87635; A9270; J0131; J0690; J0694; J1170; J1885; J2001; J2250; J2405; J2704; J3010; J3490; J7030; J7120; 00840; 96374; 96375; 99285-25; U0002